=== PATIENT | female | born 1985 | race Hispanic/Latino ===

== ENCOUNTER 2016-10-28 16:50 | Emergency (ER) | payer OTHER ==
[2016-10-28 17:01] VITALS: BP 133/76; PULSE 91; RESP 16; TEMP 99.1; O2SAT 99
--- NOTE | 2016-10-28 17:59 | ED PDOC ---
Upper Extremity Pain/Injury Time Seen by Provider: 10/28/16 16:56 Chief Complaint (Nursing): Finger,Hand,&Wrist Chief Complaint (Provider): Ring stuck on left 4th digit History Per: Patient History/Exam Limitations: no limitations Onset/Duration Of Symptoms: Hrs Current Symptoms Are (Timing): Still Present Additional History Per: Patient Additional Complaint(s): The pt is a 30yo female, G1, presents to the ED due to a ring being stuck on her left 4th digit. Pt reports swelling to the area. Denies any other medical complaints. Past Medical History Reviewed: Historical Data, Nursing Documentation, Vital Signs Vital Signs: Last Vital Signs Temp 99.1 F 10/28/16 16:59 Pulse 91 H 10/28/16 16:59 Resp 16 10/28/16 16:59 BP 133/76 10/28/16 16:59 Pulse Ox 99 10/28/16 16:59 - Medical History PMH: No Chronic Diseases - Surgical History Surgical History: No Surg Hx - Family History Family History: States: No Known Family Hx - Living Arrangements Living Arrangements: With Family - Social History Current smoker - smoking cessation education provided: No Alcohol: None Drugs: Denies - Allergies Allergies/Adverse Reactions: Allergies Allergy/AdvReac Type Severity Reaction Status Date / Time Penicillins Allergy RASH Verified 10/28/16 16:58 Review of Systems ROS Statement: Except As Marked, All Systems Reviewed And Found Negative Musculoskeletal: Positive for: Hand Pain (swollen left 4th digit) Physical Exam - Reviewed Nursing Documentation Reviewed: Yes Vital Signs Reviewed: Yes - Physical Exam Appears: Positive for: Well, Non-toxic, No Acute Distress Head Exam: Positive for: ATRAUMATIC, NORMAL INSPECTION, NORMOCEPHALIC Skin: Positive for: Normal Color, Warm Eye Exam: Positive for: Normal appearance ENT: Positive for: Normal ENT Inspection Respiratory: Negative for: Accessory Muscle Use, Respiratory Distress Extremity: Positive for: Normal ROM, Swelling (swelling noted to left 4th digit) . Negative for: Deformity Neurologic/Psych: Positive for: Alert, Oriented - ECG O2 Sat by Pulse Oximetry: 99 (RA) Pulse Ox Interpretation: Normal Medical Decision Making Medical Decision Making: Time: 1750 Impression: Swelling of left 4th digit Plan: -- Ring was cut from pt's finger, tolerated procedure well. Scribe Attestation: Documented by Thalia Alvarez acting as a scribe for YANELY Figueroa Provider Attestation: All medical record entries made by the Scribe were at my direction and personally dictated by me. I have reviewed the chart and agree that the record accurately reflects my personal performance of the history, physical exam, medical decision making, and the department course for this patient. I have also personally directed, reviewed, and agree with the discharge instructions and disposition. Disposition - Clinical Impression Clinical Impression: Edema - Patient ED Disposition Is Patient to be Admitted: No - Disposition Disposition: Routine/Home Disposition Time: 17:57 Condition: STABLE Additional Instructions: Ice, elevation. Forms: [facility] ED School/Work Excuse
== END 2016-10-28 18:05 | disposition home or self-care (01) ==
LOC: H.ER 16:50
DX: T14.8 Other injury of unspecified body region (principal); W49.04XA Ring or other jewelry causing external constriction, initial encounter; Y92.89 Other specified places as the place of occurrence of the external cause